=== PATIENT | female | born 1965 | race African-American/Black ===

== ENCOUNTER 2018-12-01 09:18 | Emergency (ER) | payer MEDICARE ==
[2018-12-01] MEDS ORDERED: HYDROCHLOROT25 MG PO (10:13)
[2018-12-01] MEDS ORDERED: LISINOPRIL10 MG PO (10:14)
[2018-12-01] MEDS ORDERED: ATENOLOL XX (10:15)
[2018-12-01] MEDS ORDERED: DELTASONE20 MG PO (11:06)
[2018-12-01 11:10] VITALS: BP 103/83
== END 2018-12-01 11:13 | disposition home or self-care (01) ==
LOC: ED 09:18
DX: T63.461A Toxic effect of venom of wasps, accidental (unintentional), initial encounter (principal); I10 Essential (primary) hypertension; Z86.73 Personal history of transient ischemic attack (TIA), and cerebral infarction without residual deficits

== ENCOUNTER 2021-04-05 09:52 | Emergency (ER) | payer MEDICARE, MEDICAID ==
[~2021-04-05] VITALS: Ht 165.1 cm; Wt 62.0 kg
[~2021-04-05 09:52] MED LIST: ATENOLOL XX; DELTASONE20 MG PO; HYDROCHLOROT25 MG PO; LISINOPRIL10 MG PO
[2021-04-05 10:31] LABS: HEMATOCRIT 38.7 % (37.0-47.0); IMMATURE GRANULOCYTES 0.2 % (0.0-5.0); MEAN CELL VOLUME 85.4 fL CALC (80.0-100.0); MEAN CORPUSCULAR HGB 26.5 pG CALC (26.0-32.0); NEUT# 3.57 thou/uL (2.00-7.15); RED BLOOD COUNT 4.53 mill/uL (4.20-5.60); RED CELL DISTRI WIDTH 13.7 % (11.5-15.5)
[2021-04-05 10:51] LABS: ALBUMIN 4.7 g/dL (3.2-5.0); ALKALINE PHOSPHATASE 118 u/l (38-126); ANION GAP 15 (6-22 (CALC)); BILIRUBIN, TOTAL 0.8 mg/dL (0.0-1.4); BUN 21 mg/dL (7-17); BUN/CREATININE RATIO 21 (12-20 (CALC)); CARBON DIOXIDE 27 mmol/l (22-30); CHLORIDE 101 mmol/l (95-108); ETHYL ALCOHOL 0 mg/dl (0-30); GFR 58 ML/MIN (>=60 (CALC)); GFR FOR AFR.AMER. > 60 ML/MIN (>=60 (CALC)); LIPASE 58 u/l (23-300); POTASSIUM 3.8 mmol/l (3.5-5.1); SGOT/AST 31 u/l (14-36); SODIUM 140 mmol/l (137-146); TOTAL PROTEIN 8.6 g/dL (6.3-8.2)
[2021-04-05 10:59] LABS: ACT PARTIAL THROMBO TIME 24.7 SECONDS (20.0-32.5); INTERNATIONAL NORMALIZED RATIO 0.9 RATIO (0.7-1.3); PROTHROMBIN TIME 9.9 SECONDS (9.0-12.5)
[2021-04-05 11:25] VITALS: BP 145/82
[2021-04-05 13:34] LABS: URINE BILIRUBIN - DIPSTICK NEGATIVE (NEGATIVE); URINE BLOOD DIPSTICK NEGATIVE (NEGATIVE); URINE COLOR YELLOW; URINE GLUCOSE - DIPSTICK NEGATIVE (NEGATIVE); URINE KETONE NEGATIVE (NEGATIVE); URINE PH 6.5 (4.5-8.0); URINE PROTEIN - DIPSTICK NEGATIVE (NEG-TRACE); URINE UROBILINOGEN - DIPSTICK 0.2 E.U./dL (0.2)
[2021-04-05 13:35] LABS: URINE LEUK ESTERASE MODERATE (NEGATIVE); URINE NITRITE - DIPSTICK NEGATIVE (Negative)
[2021-04-05 13:45] LABS: URINE TRICHOMONAS FEW hpf
[2021-04-05 13:46] LABS: URINE RBC 0-2 RBC/hpf (0-5); URINE SQUAMOUS EPITHELIAL CELL MODERATE EPI/hpf (0-FEW)
== END 2021-04-05 13:58 | disposition short-term general hospital (02) ==
LOC: ED 09:52
DX: D49.6 Neoplasm of unspecified behavior of brain (principal); G93.6 Cerebral edema; I10 Essential (primary) hypertension; F17.200 Nicotine dependence, unspecified, uncomplicated; Z85.3 Personal history of malignant neoplasm of breast; Z86.73 Personal history of transient ischemic attack (TIA), and cerebral infarction without residual deficits

== ENCOUNTER 2021-08-22 08:57 | Emergency (ER) | payer MEDICARE, MEDICAID ==
[~2021-08-22] VITALS: Ht 165.1 cm; Wt 85.0 kg
[2021-08-22] VITALS (10 sets, daily range): BP systolic 92–134; BP diastolic 48–74
[2021-08-22 09:46] LABS: HEMATOCRIT 38.5 % (37.0-47.0); HEMOGLOBIN 11.8 g/dl (12.0-16.0); IMMATURE GRANULOCYTES 0.1 % (0.0-5.0); MEAN CELL VOLUME 89.1 fL CALC (80.0-100.0); MEAN CORPUSCULAR HGB 27.3 pG CALC (26.0-32.0); MEAN CORPUSCULAR HGB CONC 30.6 g/dL CAL (32.0-36.0); NEUT# 5.31 thou/uL (2.00-7.15); RED BLOOD COUNT 4.32 mill/uL (4.20-5.60); RED CELL DISTRI WIDTH 13.4 % (11.5-15.5)
[2021-08-22 09:59] LABS: ALBUMIN 4.6 g/dL (3.2-5.0); CREATININE 1.3 mg/dL (0.5-1.0); PROTHROMBIN TIME 10.2 SECONDS (9.0-12.5); TOTAL PROTEIN 8.6 g/dL (6.3-8.2)
[2021-08-22 10:10] LABS: BILIRUBIN, TOTAL 0.4 mg/dL (0.0-1.4); POTASSIUM 2.8 mmol/l (3.5-5.1)
== END 2021-08-22 11:30 | disposition short-term general hospital (02) ==
LOC: ED 08:57
PROVIDERS: Family Medicine
DX: I63.9 Cerebral infarction, unspecified (principal); I21.4 Non-ST elevation (NSTEMI) myocardial infarction; R42 Dizziness and giddiness; R26.89 Other abnormalities of gait and mobility; I10 Essential (primary) hypertension; R29.703 NIHSS score 3; Z86.73 Personal history of transient ischemic attack (TIA), and cerebral infarction without residual deficits; Z86.79 Personal history of other diseases of the circulatory system; Z85.3 Personal history of malignant neoplasm of breast